=== PATIENT | male | born 1985 | race Caucasian/White ===

== ENCOUNTER → 2017-05-25 | Outpatient (CLI) | payer SELFPAY ==
--- NOTE | 2017-05-25 14:27 | KCIC ---
EXAM: Abdomen sonogram. HISTORY: Pain. TECHNIQUE: Sonographic imaging of the abdomen was performed. COMPARISON: None. FINDINGS: The liver is upper normal in size. There is hepatic steatosis. No focal hepatic lesion is seen. The gallbladder is unremarkable. The common bile duct is normal in caliber, measuring 4.4 mm. The pancreatic body and tail, aorta and inferior vena cava are partially obscured due to bowel gas. The right kidney is unremarkable. IMPRESSION: 1. Upper normal liver size and hepatic steatosis. 2. Predominantly obscured midline structures due to bowel gas. Electronically signed by: Arleen Ventura MD (05/25/2017 2:24 PM) [id number]
== END | disposition home or self-care (01) ==
LOC: EDSEX 12:30 → KCIC US 12:45
PROVIDERS: ATTEND Family Medicine
DX: K76.0 Fatty (change of) liver, not elsewhere classified (principal)
CPT/HCPCS: 76705